=== PATIENT | male | born 1970 | race American Indian/Alaskan Native ===

== ENCOUNTER 2017-01-18 18:49 | Emergency (ER) | payer MEDICAID ==
[~2017-01-18] VITALS: Ht 175.3 cm; Wt 65.9 kg
[~2017-01-18 18:49] MED LIST: CLEOCIN HC150 MG/CAP PO; CLINDAMYCIN HC150 MG PO; CLINDAMYCIN300 MG PO; LEVAQUIN 5500 MG/TA1 PO; LORTAB 5/500 501 TAB PO; MOTRIN 800800 MG/TAB PO; NAPROSYN500 MG PO; NO HOME MEDICATIONS; NORCO 325 MG-51 TAB PO; NORCO 325 MG-7.1 TAB PO; OXYCODONE HCL5 MG PO; PEN-VEE K500 MG PO; PERCOCET 325 MG1 TA2 PO; ULTRAM 50MG TAB50 MG PO; VICODIN PO; ZOFRAN8 MG PO
[2017-01-18 18:52] VITALS: PULSE 83; TEMP 98.8
[2017-01-18] MEDS ORDERED: NORCO 325 MG-51 TAB PO (19:15)
[2017-01-18] MEDS ORDERED: AMOXICILLIN 50500 MG PO (19:15)
[2017-01-18 19:27] VITALS: BP 168/102
== END 2017-01-18 19:26 | disposition home or self-care (01) ==
LOC: COL.ER 18:49
DX: K08.89 Other specified disorders of teeth and supporting structures (principal); F17.210 Nicotine dependence, cigarettes, uncomplicated

== ENCOUNTER 2017-04-29 16:19 | Emergency (ER) | payer MEDICAID ==
[~2017-04-29] VITALS: Ht 175.3 cm; Wt 72.7 kg
[~2017-04-29 16:19] MED LIST changes: +AMOXICILLIN 50500 MG PO
[2017-04-29 16:21] VITALS: BP 129/89; PULSE 98; TEMP 98.4
[2017-04-29] MEDS ORDERED: SUDAFED30 MG PO (16:24)
[2017-04-29] MEDS ORDERED: PERCOCET 325 MG1 TA2 PO (16:40)
[2017-04-29] MEDS ORDERED: PEN-VEE K500 MG PO (16:40)
== END 2017-04-29 16:54 | disposition home or self-care (01) ==
LOC: COL.ER 16:19
DX: K04.7 Periapical abscess without sinus (principal); F17.210 Nicotine dependence, cigarettes, uncomplicated

== ENCOUNTER 2018-11-12 14:57 | Emergency (ER) | payer MEDICAID ==
[~2018-11-12] VITALS: Ht 175.3 cm; Wt 63.6 kg
[~2018-11-12 14:57] MED LIST changes: +SUDAFED30 MG PO
[2018-11-12 15:02] VITALS: BP 141/92; PULSE 79; TEMP 99.9
[2018-11-12] MEDS ORDERED: NORCO 325 MG-51 TAB PO (15:18)
[2018-11-12] MEDS ORDERED: AMOXICILLIN 50500 MG PO (15:18)
== END 2018-11-12 15:27 | disposition home or self-care (01) ==
LOC: COL.ER 14:57
DX: K02.9 Dental caries, unspecified (principal)

== ENCOUNTER 2019-04-28 18:19 | Emergency (ER) | payer MEDICAID ==
[~2019-04-28] VITALS: Ht 175.3 cm; Wt 63.6 kg
[2019-04-28 18:33] VITALS: TEMP 98
[2019-04-28] MEDS ORDERED: AMOXICILLIN 8751 TAB PO (19:36)
[2019-04-28 19:44] VITALS: BP 111/78; PULSE 78
== END 2019-04-28 19:48 | disposition home or self-care (01) ==
LOC: COL.ER 18:19
DX: K02.9 Dental caries, unspecified (principal)

== ENCOUNTER 2019-05-17 20:41 | Emergency (ER) | payer MEDICAID ==
[~2019-05-17] VITALS: Ht 175.3 cm; Wt 63.6 kg
[~2019-05-17 20:41] MED LIST changes: +AMOXICILLIN 8751 TAB PO
[2019-05-17 20:59] VITALS: TEMP 97.5
[2019-05-17 22:52] VITALS: BP 152/94; PULSE 55
[2019-05-17] MEDS ORDERED: CLEOCIN HCL300 MG PO (22:55)
[2019-05-17] MEDS ORDERED: NORCO 325 MG-51 TAB PO (22:55)
== END 2019-05-17 23:06 | disposition home or self-care (01) ==
LOC: COL.ER 20:41
DX: K04.7 Periapical abscess without sinus (principal)
CPT/HCPCS: J1170

== ENCOUNTER 2019-09-10 16:03 | Emergency (ER) | payer MEDICAID ==
[~2019-09-10] VITALS: Ht 175.3 cm; Wt 67.6 kg
[~2019-09-10 16:03] MED LIST changes: +CLEOCIN HCL300 MG PO
[2019-09-10 16:06] VITALS: TEMP 98.3
[2019-09-10] MEDS ORDERED: VITAMINC1000TA PO (16:13)
[2019-09-10] MEDS ORDERED: ONE-A-DAY ESSE1 EACH PO (16:13)
[2019-09-10 17:06] LABS: BASO # 0.1 (0.0-0.2); BASO % 0.5 % (0.0-2.0); EOS # 0.2 (0.0-0.7); EOS % 1.9 % (0-4.0); GRAN % 64.7 % (42.2-75.2); HEMATOCRIT 47.2 % (42.0-52.0); HEMOGLOBIN 16.4 g/dl (13.5-18.0); LYMPH % 21.2 % (20.0-51.0); MEAN CELL VOLUME 95 fl (80.0-100.0); MEAN CORPUSCULAR HEMOGLOBIN 33 pg (27.0-31.0); MEAN CORPUSCULAR HGB CONC 35 g/dl (33.0-37.0); MEAN PLATELET VOLUME 8.6 fl (7.4-10.4); MONO # 1.1 (0.1-0.6); MONO % 11.5 % (1.7-9.3); PLATELET COUNT 274 K/mm3 (130-400); RED BLOOD COUNT 4.95 M/mm3 (4.20-5.60); REDCELL DISTRIBUTION WIDTH-CV 12.9 % (11.5-14.5)
[2019-09-10 17:14] LABS: ALBUMIN 4.5 gm/dL (3.5-5.0); BILIRUBIN,TOTAL 0.5 mg/dL (0.0-1.0); CALCIUM 9.7 mg/dL (8.4-10.2); CREATININE, serum 0.7 (0.66-1.25); POTASSIUM 4.3 mmol/L (3.4-5.0); TOTAL PROTEIN 7.2 gm/dL (6.4-8.2)
[2019-09-10 17:34] LABS: ERYTHROCYTE SEDIMENTATION RATE 1 mm/hr (0-15)
[2019-09-10] MEDS ORDERED: COMPAZINE 110 MG/TAB PO (19:14)
[2019-09-10 19:26] VITALS: BP 121/74; PULSE 87
== END 2019-09-10 19:26 | disposition home or self-care (01) ==
LOC: COL.ER 16:03
PROVIDERS: Emergency Medicine
DX: R51 Headache (principal); F17.210 Nicotine dependence, cigarettes, uncomplicated
CPT/HCPCS: J0780; J1200; J1885; J7030

== ENCOUNTER 2020-07-04 18:15 | Emergency (ER) | payer MEDICAID ==
[~2020-07-04] VITALS: Ht 175.3 cm; Wt 63.6 kg
[~2020-07-04 18:15] MED LIST changes: +COMPAZINE 110 MG/TAB PO; +ONE-A-DAY ESSE1 EACH PO; +VITAMINC1000TA PO
[2020-07-04 18:20] VITALS: BP 145/103; TEMP 99
[2020-07-04] MEDS ORDERED: CLEOCIN HCL300 MG PO (18:43)
[2020-07-04] MEDS ORDERED: NORCO 325 MG-51 TAB PO (18:43)
[2020-07-04 18:53] VITALS: PULSE 84
== END 2020-07-04 18:53 | disposition home or self-care (01) ==
LOC: COL.ER 18:15
DX: K02.9 Dental caries, unspecified (principal); F17.210 Nicotine dependence, cigarettes, uncomplicated; Z88.1 Allergy status to other antibiotic agents; Z88.6 Allergy status to analgesic agent